=== PATIENT | male | born 1985 | race Caucasian/White ===

== ENCOUNTER 2019-05-15 05:26 | Emergency (ER) | payer OTHER ==
[2019-05-15 06:09] LABS: ABSOLUTE BASOPHILS # (AUTO) 0.1 10^3/uL (0.0-0.2); ABSOLUTE LYMPHOCYTES (AUTO) 1.5 10^3/uL (0.5-4.7); ABSOLUTE NEUT (AUTO) 11.3 10^3/uL (1.7-8.2); BASOPHILS % (AUTO) 0.5 % (0-2); HEMATOCRIT 40.5 % (37.9-51.0); HEMOGLOBIN 13.5 g/dL (13.5-17.0); MEAN CORPUSCULAR HEMOGLOBIN 28.5 pg (27.0-33.4); MEAN CORPUSCULAR HGB CONC 33.4 g/dL (32.0-36.0); MEAN CORPUSCULAR VOLUME 85 fl (80-97); MONOCYTES % (AUTO) 7.4 % (3-13); PLATELET COUNT 453 10^3/uL (150-450); RED BLOOD COUNT 4.75 10^6/uL (4.35-5.55); RED CELL DISTRIBUTION WIDTH 11.7 % (11.5-14.0); SEGMENTED NEUTROPHILS % (AUTO) 81.1 % (42-78); TOTAL CELLS COUNTED % (AUTO) 100 %; WHITE BLOOD COUNT 13.9 10^3/uL (4.0-10.5)
[2019-05-15] MEDS ORDERED: BUTALB/ACETAMINOPHEN/CAFFEINE 1 TAB EACH PO ONE (06:09)
[2019-05-15] MEDS ORDERED: ONDANSETRON 4 MG TAB.RAPDIS PO ONE (06:09)
--- NOTE | 2019-05-15 06:13 | ER Document Report ---
ED General - General Chief Complaint: Fever Stated Complaint: FEVER Time Seen by Provider: 05/15/19 05:58 Primary Care Provider: MIRNA AIKEN [NO LOCAL MD] - Follow up as needed TRAVEL OUTSIDE OF THE [place] IN LAST 30 DAYS: No - HPI Notes: Patient states that he has had weakness, diffuse abdominal pain, and intermittent headaches for 1 month. He states he is been unable to work for a month. He states his only chronic medical problem is psoriasis. He denies any illicit drug use. He denies alcohol use. He denies tobacco use. He states he does vape. He states that he takes no daily medications. Patient states she has had nausea but no vomiting. He has had 2 episodes of diarrhea in the last month but none recently. He also states he had diffuse abdominal pain. It has been intermittent and crampy. Nothing makes it better or worse. It does not radiate. It is moderate in intensity. He states his headache has been occipital and frontal. - Related Data Allergies/Adverse Reactions: No Known Allergies Allergy (Unverified 05/15/19 05:55) Past Medical History - Social History Smoking Status: Never Smoker Chew tobacco use (# tins/day): No Frequency of alcohol use: None Drug Abuse: None Family History: Reviewed & Not Pertinent Patient has suicidal ideation: No Patient has homicidal ideation: No Renal/ Medical History: Denies: Hx Peritoneal Dialysis Musculoskeletal Medical History: Reports Hx Arthritis - psoriatic arthritis Review of Systems - Review of Systems Constitutional: Malaise, Weakness Gastrointestinal: Diarrhea, Nausea, Poor appetite Neurological/Psychological: Weakness, Headaches -: Yes All other systems reviewed and negative Physical Exam - Vital signs Vitals: Temp Pulse Resp BP Pulse Ox 99.8 F 142 H 20 144/87 H 98 05/15/19 05:39 05/15/19 05:39 05/15/19 05:39 05/15/19 05:39 05/15/19 05:39 Interpretation: Tachycardic - General General appearance: Anxious In distress: None - HEENT Head: Normocephalic, Atraumatic Eyes: Normal Pupils: PERRL - Respiratory Respiratory status: No respiratory distress Chest status: Nontender Breath sounds: Normal Chest palpation: Normal - Cardiovascular Rhythm: Regular, Tachycardia Heart sounds: Normal auscultation Murmur: No - Abdominal Inspection: Normal Distension: No distension Bowel sounds: Normal Tenderness: Nontender Organomegaly: No organomegaly - Back Back: Normal, Nontender - Extremities General upper extremity: Normal inspection, Nontender, Normal color, Normal ROM, Normal temperature General lower extremity: Normal inspection, Nontender, Normal color, Normal ROM, Normal temperature, Normal weight bearing. No: Héctor's sign - Neurological Neuro grossly intact: Yes Cognition: Normal Orientation: AAOx4 Noemi Coma Scale Eye Opening: Spontaneous [place]emi Coma Scale Verbal: Oriented [place] Coma Scale Motor: Obeys Commands [place] Coma Scale Total: 15 Speech: Normal Motor strength normal: LUE, RUE, LLE, RLE Sensory: Normal - Psychological Associated symptoms: Agitated, Anxious, Restlessness - Skin Skin Temperature: Cool Skin Moisture: Moist Skin Color: Pale Course - Re-evaluation Re-evalutation: 05/15/19 10:47 Patient reevaluated just now. He is still tachycardic however heart rate varies depending on whether he is sitting up and patient's level of anxiety. I have noticed that heart rate will go under 100 if he is laying back and relaxing. Blood pressure is normal. Respiratory rate is normal O2 saturations are normal. Patient does work with farm animals and does have symptoms consistent with possible Brucella infection. I am going to treat the patient has if it may be a Brucella infection. He does not have meningitis. He has full range of motion of his neck without pain. He has no abdominal pain. Patient will not allow me to do an IV. I have asked patient to return in 3 to 4 days for a recheck. - Vital Signs Vital signs: Temp Pulse Resp BP Pulse Ox 99.8 F 82 21 H 136/98 H 96 05/15/19 05:39 05/15/19 06:02 05/15/19 10:04 05/15/19 10:04 05/15/19 10:04 - Laboratory Result Diagrams: 05/15/19 05:55 05/15/19 05:55 Laboratory results interpreted by me: 05/15/19 05/15/19 05/15/19 05:55 05:55 07:29 WBC 13.9 H Plt Count 453 H Seg Neutrophils % 81.1 H Lymphocytes % 11.0 L Absolute Neutrophils 11.3 H Sodium 135.1 L Chloride 96 L Glucose 114 H Alkaline Phosphatase 142 H Urine Protein 30 H Urine Ketones 20 H - Diagnostic Test Radiology results interpreted by me: 05/15/19 10:49 Abdomen/Pelvis CT 05/15/19 06:08 IMPRESSION: 1. No noncontrast CT findings of the abdomen or pelvis to explain abdominal pain. Normal appendix. 2. There is peripheral reticular interstitial and ground-glass pulmonary opacity in the included bilateral lower lungs with a pattern of subpleural sparing, this pattern concerning for pulmonary fibrosis. Recommend ILD protocol CT further evaluate on a nonemergent basis. Head CT 05/15/19 06:08 IMPRESSION: 1. No acute intracranial abnormality identified. This exam was performed according to our departmental dose-optimization program, which includes automated exposure control, adjustment of the mA and/or kV according to patient size and/or use of iterative reconstruction technique. Discharge - Discharge Clinical Impression: Fever Qualifiers: Fever type: unspecified Qualified Code(s): R50.9 - Fever, unspecified Condition: Stable Disposition: HOME, SELF-CARE Instructions: Fever ([facility]), Acetaminophen Additional Instructions: Patient please return for reevaluation in 3 to 4 days. Please return sooner if problems with fever pain or any concerns Prescriptions: Tramadol HCl [Ultram 50 mg Tablet] 50 mg PO Q6HP PRN #20 tablet PRN Reason: Doxycycline Hyclate 100 mg PO BID #14 capsule Referrals: LOCALMD,NO [NO LOCAL MD] - Follow up as needed
[2019-05-15 06:29] LABS: ALBUMIN 4.4 g/dL (3.5-5.0); ALKALINE PHOSPHATASE 142 U/L (38-126); ANION GAP 14 (5-19); ASPARTATE AMINO TRANSFERASE 28 U/L (17-59); BILIRUBIN,DIRECT 0.2 mg/dL (0.0-0.4); BILIRUBIN,TOTAL 0.5 mg/dL (0.2-1.3); BLOOD UREA NITROGEN 13 mg/dL (7-20); CALCIUM 9.7 mg/dL (8.4-10.2); CARBON DIOXIDE 25 mmol/L (22-30); CHLORIDE 96 mmol/L (98-107); CREATINE KINASE 74 U/L (55-170); GLUCOSE 114 mg/dL (75-110); POTASSIUM 4.2 mmol/L (3.6-5.0); TOTAL PROTEIN 8.1 g/dL (6.3-8.2)
[2019-05-15 07:06] LABS: ALCOHOL < 10 mg/dL (NONE DETECTED)
--- NOTE | 2019-05-15 07:53 | RADIOLOGY REPORT (SQ) ---
EXAM DESCRIPTION: CT HEAD WITHOUT IV CONTRAST COMPLETED DATE/TME: 05/15/2019 06:08 CLINICAL HISTORY: HEADACHE COMPARISON: None available TECHNIQUE: Axial CT of the head obtained from the skull apex to the skull base without contrast. FINDINGS: No acute intracranial hemorrhage identified. No mass, mass effect, shift of the midline, abnormal extra-axial fluid collection or CT evidence of acute ischemic change identified. The ventricular system is unremarkable. No acute abnormalities of the supratentorial white matter, basal ganglia, cerebellum, or brainstem. The visualized paranasal sinuses and the mastoids are clear. No skull fracture identified. Visualized orbits and globes are unremarkable. DLP:1123.58 mGy-cm IMPRESSION: 1. No acute intracranial abnormality identified. This exam was performed according to our departmental dose-optimization program, which includes automated exposure control, adjustment of the mA and/or kV according to patient size and/or use of iterative reconstruction technique.
--- NOTE | 2019-05-15 08:03 | EKG REPORT ---
SEVERITY:- BORDERLINE ECG - SINUS TACHYCARDIA PROBABLE LEFT ATRIAL ABNORMALITY BORDERLINE LEFT AXIS DEVIATION : Confirmed by: Sandeep Dang MD 15-May-2019 08:02:58
[2019-05-15 08:20] LABS: APPEARANCE,URINE SLIGHTLY-CLOUDY; BILIRUBIN,URINE NEGATIVE (NEGATIVE); COLOR,URINE YELLOW; GLUCOSE, URINE NEGATIVE (NEGATIVE); KETONES,URINE 20 mg/dL (NEGATIVE); LEUKOCYTE ESTERASE,URINE NEGATIVE (NEGATIVE); NITRITE,URINE NEGATIVE (NEGATIVE); PROTEIN,URINE 30 mg/dL (NEGATIVE); URINE SPECIFIC GRAVITY 1.025; UROBILINOGEN,URINE NEGATIVE mg/dL (<2.0)
[2019-05-15 08:21] LABS: ADD MANUAL MICROSCOPIC YES
--- NOTE | 2019-05-15 08:32 | RADIOLOGY REPORT (SQ) ---
EXAM DESCRIPTION: CT ABD/PELVIS NO ORAL OR IV COMPLETED DATE/TIME: 05/15/2019 6:37 am REASON FOR STUDY: diffuse abd pain/refuses iv COMPARISON: None. TECHNIQUE: CT scan of the abdomen and pelvis performed without intravenous or oral contrast. Images reviewed with lung, soft tissue, and bone windows. Reconstructed coronal and sagittal MPR images revi ewed. All images stored on PACS. All CT scanners at this facility use dose modulation, iterative reconstruction, and/or weight based d osing when appropriate to reduce radiation dose to as low as reasonably achievable (ALARA). [facility]: Dose Right [facility]: CareDose [facility]: Dose Right [facility]: Teradose 4D [facility]: Smart [place] RADIATION DOSE: CT Rad equipment meets quality standard of care and radiation dose reduction techniq ues were employed. CTDIvol: 14.4 mGy. DLP: 777 mGy-cm.mGy. LIMITATIONS: None. FINDINGS: LOWER CHEST: There is peripheral reticular interstitial and ground-glass pulmonary opacity in the included bilateral lower lungs with a pattern of subpleural sparing. NON-CONTRASTED LIVER, SPLEEN, ADRENALS: Evaluation limited by lack of IV contrast. No identified sign ificant masses. PANCREAS: No masses. No peripancreatic inflammatory changes. GALLBLADDER: No identified stones by CT criteria. No inflammatory changes to suggest cholecystitis. RIGHT KIDNEY AND URETER: No suspicious masses. Assessment limited by lack of IV contrast. No signif icant calcifications. No hydronephrosis or hydroureter. LEFT KIDNEY AND URETER: No suspicious masses. Assessment limited by lack of IV contrast. No signifi cant calcifications. No hydronephrosis or hydroureter. AORTA AND RETROPERITONEUM: No aneurysm. No retroperitoneal masses or adenopathy. BOWEL AND PERITONEAL CAVITY: No obvious masses or inflammatory changes. No free fluid. APPENDIX: Normal. PELVIS, BLADDER, AND ABDOMINAL WALL:No abnormal masses. No free fluid. Bladder normal. BONES: No significant findings. OTHER: No other significant finding. IMPRESSION: 1. No noncontrast CT findings of the abdomen or pelvis to explain abdominal pain. Norm al appendix. 2. There is peripheral reticular interstitial and ground-glass pulmonary opacity in the included bila teral lower lungs with a pattern of subpleural sparing, this pattern concerning for pulmonary fibrosi s. Recommend ILD protocol CT further evaluate on a nonemergent basis. COMMENT: Quality ID # [id number]: Final reports with documentation of one or more dose reduction techniques (e.g., Automated exposure control, adjustment of the mA and/or kV according to patient size, use of iterative reconstruction technique) TECHNICAL DOCUMENTATION: JOB ID: [id number] [employer]- All Rights Reserved Reading location - IP/workstation name: [email or web address]
[2019-05-15 08:38] LABS: BACTERIA,URINE 2+ /HPF
[2019-05-15 11:03] VITALS: BP 133/92
== END 2019-05-15 11:15 | disposition home or self-care (01) ==
LOC: ER 05:26
DX: R50.9 Fever, unspecified (principal); R53.1 Weakness; R10.9 Unspecified abdominal pain; R51 Headache; R00.0 Tachycardia, unspecified; R19.7 Diarrhea, unspecified; F41.9 Anxiety disorder, unspecified
CPT/HCPCS: 36415; 70450; 74176; 80053; 80307; 81001; 82550; 83690; 85025; 87040; 93005; 93010; 99284